=== PATIENT | female | born 1935 | race Caucasian/White ===

== ENCOUNTER 2017-12-14 09:47 | Emergency (ER) | payer OTHER ==
[~2017-12-14] VITALS: Ht 160 cm; Wt 68.3 kg
[~2017-12-14 09:47] MED LIST: ALLOPURINOL300 MG PO; AMLODIPINE BESYL5 MG PO; ASPIRIN81 M2 PO; ATORVASTATIN CA80 MG PO; CALCIUM 600 +1 EAC9 PO; CIPRO500 MG PO; FIBER THERAPY0.52 GM PO; METOPROLOL SUCC25 MG PO; ONDANSETRON HCL8 MG PO; PREDNISONE20 MG PO; PROTONIX40 MG PO; VITAMIN D2000 INTUN PO
[2017-12-14] MEDS ORDERED: PERCOCET 5/31 TABLET PO (14:05)
[2017-12-14 16:05] VITALS: BP 125/76
== END 2017-12-14 16:07 | disposition home or self-care (01) ==
LOC: EME 09:47
DX: S42.211A Unspecified displaced fracture of surgical neck of right humerus, initial encounter for closed fracture (principal); W17.89XA Other fall from one level to another, initial encounter; Y93.E2 Activity, laundry; Z85.71 Personal history of Hodgkin lymphoma; Z95.1 Presence of aortocoronary bypass graft; Z88.8 Allergy status to other drugs, medicaments and biological substances
CPT/HCPCS: 73030; 73200; 99281; 99283